=== PATIENT | male | born 1945 | race Caucasian/White ===

== ENCOUNTER 2017-02-10 08:19 | Day surgery (SDC) | payer MEDICARE, OTHER ==
[~2017-02-10] VITALS: Ht 180.3 cm; Wt 127.0 kg
[~2017-02-10 08:19] MED LIST: BUPIVACAINE-EPI 0.25%-1:200000 50 ML VIAL. ONE; DESFLURANE > 120 MINUTES IH ONE; DEXAMETHASONE SOD PHOS 20 MG/5 ML VIAL. ONE; GLYCOPYRROLATE 1 MG/5 ML VIAL. ONE; LIDOCAINE 2% PF Vial for OR 5 ML VIAL. ONE; MIDAZOLAM HCL/PF 2 MG/2 ML VIAL. ONE; NEOSTIGMINE METHYLSULFATE 5 MG/5 ML SYRINGE. ONE; ONDANSETRON PF 4 MG/2 ML VIAL. ONE; PROPOFOL 20 ML IV ONE; ROCURONIUM 50 MG/5 ML VIAL. ONE; fentaNYL PF VIAL 100 MCG/2 ML VIAL ONE
[2017-02-10] MEDS ORDERED: SITA1TAB11 PO (08:33)
[2017-02-10] MEDS ORDERED: INSU100I13 SQ (08:33)
[2017-02-10] MEDS ORDERED: GABA-586 PO (08:34)
[2017-02-10] MEDS ORDERED: ASPI-482 PO (08:35)
[2017-02-10] MEDS ORDERED: LOSA25TA4 PO (08:35)
[2017-02-10] MEDS ORDERED: INSU100C4 SQ (08:35)
[2017-02-10] MEDS ORDERED: ATOR20TA58 PO (08:36)
[2017-02-10] MEDS ORDERED: NIFE60TA10 PO (08:37)
[2017-02-10] MEDS ORDERED: fentaNYL PF VIAL 100 MCG/2 ML VIAL IV PRN ×4 (09:00→11:30)
[2017-02-10] MEDS ORDERED: LIDOCAINE 1% 1 ML SYRINGE. ID PRN ×2 (09:00→11:30)
[2017-02-10] MEDS ORDERED: IV RINGERS,LACTATED 1000ML 1,000 ML IV SCH ×2 (09:00→11:19)
[2017-02-10] MEDS ORDERED: MIDAZOLAM HCL/PF 2 MG/2 ML VIAL. IV PRN (09:00)
[2017-02-10] MEDS ORDERED: PHENYLEPHRINE in 0.9% NACL PF 1 MG/10 ML DISP.SYRIN. IV ONE (09:30)
[2017-02-10] MEDS ORDERED: ePHEDrine PF IN SALINE 50 MG/5 ML DISP.SYRIN IV ONE (09:40)
[2017-02-10] MEDS ORDERED: PROPOFOL 20 ML IV ONE (09:47)
[2017-02-10] MEDS ORDERED: fentaNYL PF VIAL 100 MCG/2 ML VIAL ONE (09:47)
[2017-02-10] MEDS ORDERED: ROCURONIUM 50 MG/5 ML VIAL. ONE (10:13)
--- NOTE | 2017-02-10 10:57 | PDOC ---
BRIEF OPERATIVE NOTE Date: Feb 10, 2017 Pre-Op Diagnosis Incarcerated ventral hernia Post-Op Diagnosis Same Procedure Performed Robotic assisted L/S Ventral hernia repair with mesh Surgeon Shoaib Anesthesia Type: General Blood Loss 5ml Specimens Obtained none Findings as above Complications None JANNET WERNER MD Feb 10, 2017 10:57
--- NOTE | 2017-02-10 10:59 | DISCH ---
DISCHARGE INSTRUCTIONS Condition on Discharge Condition on Discharge: Stable Activity After Discharge Activity Instructions for Disc: Avoid exertion Other activity instructions: No lifting >20lbs for 2 weeks Diet after Discharge Diet after Discharge: Regular Wound Incision Care Other wound/incision instructi: May shower in 24 hour, leave umbilical dressing on for 1 week Contacting the after DC Call your doctor for: If your condition worsens Follow-Up Follow up with: Dr Werner in 2 weeks JANNET WERNER MD Feb 10, 2017 10:58
[2017-02-10] MEDS: MORPHINE SULFATE 2 MG/ML DISP.SYRIN. IV PRN ×2 (11:25→11:42)
[2017-02-10] MEDS ORDERED: HYDROmorphone 2 MG/ML VIAL IV PRN (11:30)
[2017-02-10] MEDS ORDERED: PROCHLORPERAZINE 10 MG/2 ML VIAL. IV PRN (11:30)
[2017-02-10] MEDS ORDERED: ONDANSETRON PF 4 MG/2 ML VIAL. IV PRN (11:30)
[2017-02-10] MEDS ORDERED: HYDR-971 PO (11:45)
[2017-02-10] MEDS ORDERED: HYDROcodone/APAP 5/325MG 1 TAB TABLET ONE (12:04)
[2017-02-10] MEDS ORDERED: HYDROcodone/APAP 5/325MG 1 TAB TABLET PO PRN (12:15)
[2017-02-10 12:20] VITALS: BP 158/71
--- NOTE | 2017-02-10 12:49 | OP ---
DATE OF SURGERY: 02/10/2017 PREOPERATIVE DIAGNOSIS: Incarcerated ventral hernia. POSTOPERATIVE DIAGNOSIS: Incarcerated ventral hernia. PROCEDURE: Robotic-assisted laparoscopic ventral hernia repair with mesh. SURGEON: Newton Wrener M.D. INDICATIONS: The patient is a 71-year-old gentleman who has a large mid abdominal ventral hernia with incarcerated omentum. Procedure of robotic-assisted laparoscopic hernia repair with mesh was explained to the patient in detail. Risks, benefits were also discussed including bleeding, infection, injury to intra-abdominal contents, possibly necessitating further open operations. Alternatives of this procedure were also discussed with the patient who seemed to understand and gave verbal and written consent to have the procedure performed. DESCRIPTION OF PROCEDURE: The patient was taken to the operating room and placed in the supine position. General anesthesia was initiated. Once the patient was asleep and intubated, his abdomen was prepped and draped in usual sterile fashion using ChloraPrep. An area in the left upper quadrant was injected with 0.25% Marcaine with epinephrine. Incision was made with an 11 blade scalpel and a 5 mm Visiport was placed under direct visualization into the abdomen. Pneumoperitoneum was achieved. Once this was complete, 5 mm camera was placed within the abdomen. The abdomen was inspected. It was noted that there was an incarcerated omentum within the ventral hernia. At this point, three da Cherri 8.5 mm ports were placed, one in the left upper quadrant, one in the left mid abdomen and one left lower quadrant under direct visualization. Once these were in place, the da Cherri robot was brought in and docked to the ports. A 30 degree scope was placed within the abdomen through the middle port and an EndoShears scissors and a grasper were placed under direct visualization. At this point, the surgeon went to the robotic console. Using the grasper and EndoShears scissors, the incarcerated omentum was reduced from the hernia defect. The hernia defect was then closed using a 2-0 running V-Loc nonabsorbable suture. At this point, a Ventralight mesh 4 x 6 was placed within the abdomen. This was placed over the hernia defect and sewn into place with a running absorbable V-Loc suture. The mesh was sewn in circumferentially. Once this was complete, the ports were removed. The pneumoperitoneum was reduced. The skin incisions were closed with 4-0 subcuticular Monocryl. Mastisol, Steri-Strips and island dressings were applied. The patient was awakened, extubated in the operating room, taken to recovery in stable condition. All sponge, instrument counts listed as correct. Estimated blood loss 5 mL. NEWTON WERNER MD DR: LUIS/jose JOB#: [id number] / [id number] TEQUILA Keene MD
== END 2017-02-10 12:44 | disposition home or self-care (01) ==
LOC: SURG 08:19
PROVIDERS: ATTEND Surgery
DX: K43.6 Other and unspecified ventral hernia with obstruction, without gangrene (principal); E78.00 Pure hypercholesterolemia, unspecified; I10 Essential (primary) hypertension; E66.9 Obesity, unspecified; E03.9 Hypothyroidism, unspecified; E11.9 Type 2 diabetes mellitus without complications; F17.200 Nicotine dependence, unspecified, uncomplicated; Z86.69 Personal history of other diseases of the nervous system and sense organs
CPT/HCPCS: 49653; 82962; C1781; J0690; J1100; J2250; J2270; J2370; J2405; J2704; J2710; J3010; J3490; J7120

== ENCOUNTER → 2017-09-06 | Outpatient (CLI) | payer MEDICARE, OTHER | END | disposition home or self-care (01) | LOC: MRI 09:56 | DX: M51.27 Other intervertebral disc displacement, lumbosacral region (principal); M48.061 Spinal stenosis, lumbar region without neurogenic claudication; E88.2 Lipomatosis, not elsewhere classified; M54.16 Radiculopathy, lumbar region | CPT/HCPCS: 72148 ==

== ENCOUNTER → 2018-10-05 | Outpatient (CLI) | payer MEDICARE, OTHER ==
[~2018-10-05] MED LIST changes: +ASPI-482 PO; +ATOR20TA58 PO; -BUPIVACAINE-EPI 0.25%-1:200000 50 ML VIAL. ONE; -DESFLURANE > 120 MINUTES IH ONE; -DEXAMETHASONE SOD PHOS 20 MG/5 ML VIAL. ONE; +GABA300C18 PO; -GLYCOPYRROLATE 1 MG/5 ML VIAL. ONE; +HYDR-3164 PO; +INSU100C4 SQ; +INSU100I13 SQ; -LIDOCAINE 2% PF Vial for OR 5 ML VIAL. ONE; +LOSA25TA54 PO; -MIDAZOLAM HCL/PF 2 MG/2 ML VIAL. ONE; -NEOSTIGMINE METHYLSULFATE 5 MG/5 ML SYRINGE. ONE; +NIFE60TA14 PO; -ONDANSETRON PF 4 MG/2 ML VIAL. ONE; -PROPOFOL 20 ML IV ONE; -ROCURONIUM 50 MG/5 ML VIAL. ONE; +SITA1TAB11 PO; -fentaNYL PF VIAL 100 MCG/2 ML VIAL ONE
--- NOTE | 2018-10-05 08:42 | KCIC ---
MRI Lumbar Spine without contrast History: Lumbar radiculopathy, low back pain, sciatica getting worse of the lower extremities bilaterally Technique: Multiplanar, multi sequential noncontrast MR imaging was performed of the lumbar spine. Comparison: September 06, 2017 Findings: Lumbar vertebral body stature is maintained. There is negligible grade 1 anterior spondylolisthesis L5-S1, bilateral L5 spondylolysis. Conus terminates at L1. Intervertebral disc spaces are relatively preserved, very mild posterior narrowing L5-S1. L2-L3: Neural foramina and spinal canal are adequate. There is mild buckling of the ligamentum flavum. L3-L4: There is minimal buckling of the ligamentum flavum. Neural foramina and spinal canal are overall adequate. L4-L5: There is mild buckling of the ligamentum flavum. There is negligible disc osteophyte complex. There is mild inferior neural foramina compromise bilaterally. Spinal canal is adequate. L5-S1: There is again posterior epidural lipomatosis. There is again minimal disc osteophyte complex. There is posterior annular tear. There is somewhat limited preserved subarachnoid space, overall moderate attenuation of the thecal sac primarily from posteriorly by epidural lipomatosis. There is more significant narrowing of the distal left neural foramen by disc osteophyte complex and shallow protrusion with contact of the exiting left L5 nerve root extending to the extraforaminal region. There is moderate narrowing of the right neural foramen also greater distally, contact of the undersurface exiting right L5 nerve root. Impression: 1. There is very mild grade 1 anterior spondylolisthesis L5-S1 due to L5 spondylolysis. There is more significant narrowing of the more distal left L5-S1 neural foramen with contact exiting left L5 nerve root extending to the extraforaminal region, lesser degree of moderate narrowing on the right at L5-S1. There is mild neural foramina compromise bilaterally at L4-5. 2. There is again epidural lipomatosis at L5-S1 resulting in moderate attenuation of the thecal sac from posteriorly. Electronically signed by: Vamshi Dunn MD (10/05/2018 8:38 AM) [facility]
== END | disposition home or self-care (01) ==
LOC: KCIC MRI 07:25
DX: M43.17 Spondylolisthesis, lumbosacral region (principal); M54.16 Radiculopathy, lumbar region; M48.07 Spinal stenosis, lumbosacral region
CPT/HCPCS: 72148

== ENCOUNTER 2018-12-19 11:12 | Observation (INO) | payer MEDICARE, OTHER ==
[~2018-12-19] VITALS: Ht 180.3 cm; Wt 129.3 kg
[~2018-12-19 11:12] MED LIST changes: +HYDROmorphone 2 MG/ML VIAL IV PRN; +IV RINGERS,LACTATED 1000ML 1,000 ML IV SCH; +LIDOCAINE 1% PF 2 ML VIAL. ID PRN; +MORPHINE SULFATE 2 MG/ML VIAL. IV PRN; +ONDANSETRON PF 4 MG/2 ML VIAL. IV PRN; +PROCHLORPERAZINE 10 MG/2 ML VIAL. IV PRN; +fentaNYL PF VIAL 100 MCG/2 ML VIAL IV PRN
[2018-12-19] MEDS ORDERED: BACITRACIN 50,000 UNIT in IV NORMAL SALINE 250ML 250 ML IRR ONE (11:45)
--- NOTE | 2018-12-19 11:52 | PDOC1 ---
History and Physical Visit Information Date of Admission: 12/19/2018 History of Present Illness History of Present Illness 73-year-old man coming into the hospital today for placement of a dual-chamber ICD in the setting of severe cardio myopathy with ejection fraction of 30%. He was evaluated in the office and underwent a stress test which did not reveal any ischemia. Discussed the risks and benefits and he wishes to proceed. Cardiac Risk Factors Cardiac Risk Factors: Hypertension, Hyperlipidemia, Family History Past Medical History Cardiovascular: CHF GI: No pertinent hx Heme/Onc: No pertinent hx Hepatobiliary: No pertinent hx Psych: No pertinent hx Musculoskeletal: low back pain Rheumatologic: No pertinent hx Infectious disease: No pertinent hx ENT: No pertinent hx Renal/: No pertinent hx Endocrine: Diabetes Dermatology: No pertinent hx Current Medications Current Medications Current Medications Bacitracin 02193 unit/Sodium Chloride 250 ml @ 0 mls/hr 1X ONCE IRR ; Start 12/19/18 at 11:45; Stop 12/19/18 at 11:46 Cefazolin Sodium/ Dextrose 50 ml @ 100 mls/hr 1X ONCE IV ; Start 12/19/18 at 11:33; Stop 12/19/18 at 12:02 Fentanyl Citrate (Fentanyl 2ml Vial) 25 mcg PRN Q5MIN PRN IV MILD PAIN; Start 12/19/18 at 07:00; Stop 12/20/18 at 06:59 Fentanyl Citrate (Fentanyl 2ml Vial) 50 mcg PRN Q5MIN PRN IV MODERATE TO SEVERE PAIN; Start 12/19/18 at 07:00; Stop 12/20/18 at 06:59 Hydromorphone HCl (Dilaudid) 0.5 mg PRN Q10MIN PRN IV SEV PAIN, Second choice; Start 12/19/18 at 07:00; Stop 12/20/18 at 06:59 Lidocaine HCl (Xylocaine-Mpf 1% 2ml Vial) 2 ml PRN 1X PRN ID PRIOR TO IV START; Start 12/19/18 at 07:00; Stop 12/20/18 at 06:59 Morphine Sulfate (Morphine Sulfate) 1 mg PRN Q10MIN PRN IV SEVERE PAIN; Start 12/19/18 at 07:00; Stop 12/20/18 at 06:59 Ondansetron HCl (Zofran) 4 mg PRN Q6HRS PRN IV NAUSEA/VOMITING; Start 12/19/18 at 07:00; Stop 12/20/18 at 06:59 Prochlorperazine Edisylate (Compazine) 5 mg PACU PRN PRN IV NAUSEA, MRX1; Start 12/19/18 at 07:00; Stop 12/20/18 at 06:59 Ringer's Solution 1,000 ml @ 30 mls/hr Q24H IV ; Start 12/19/18 at 07:00; Stop 12/19/18 at 18:59 Allergies Allergies Allergies Coded Allergies Type Severity Reaction Last Updated Verified lisinopril Allergy Intermediate 02/10/17 Yes Social History Smoke: No ALCOHOL: none Drugs: None Lives: with Family ROS Review of System Negative for 06/11 systems reviewed unless otherwise noted above in HPI. Physical Exam General: Alert, Oriented X3 HEENT: Atraumatic Lungs: Clear to auscultation Heart: Regular rate CHEST: Clear to auscultation Abdomen: Normal bowel sounds Extremities: No clubbing Skin: No rashes Neuro: Normal gait Vitals VITALS VSS Labs Labs Labs pending ECG EKG: NSR (QRS 105 ms) VTE Prophylaxis Ordered VTE Prophylaxis Devices: No VTE Pharmacological Prophylaxi: No Assessment/Plan Assessment/Plan 1. NICM with EF less than 35% 2. HTN 3. Dyslipidemia 4. CKD 5. DM2 Plan for dual chamber ICD. KARIN MINOR MD Dec 19, 2018 11:52
--- NOTE | 2018-12-19 11:52 | PDOC ---
MODERATE SEDATION ASSESSMENT RISKS/ALTERNATIVES Risks/Alternatives Risks and alternatives of this type of sedation and procedure discussed with: RISK/ALTERNATIVES: Patient H & P ON CHART H & P H & P on chart and reviewed for co-morbid conditions and appropriate labs. H&P ON CHART: Yes STATUS PREG STATUS ASSESSED: N/A MEDS/ALLERGIES REVIEWED Meds/Allergies Reviewed Medications and Allergies including time and route of recently administered narcotics and sedatives. MEDS/ALLERGIES REVIEWED: Yes ASA RATING ASA RATING: II AIRWAY ASSESSMENT Airway Assessment Airway patency, oral function limitations, presence of caps, crowns, dentures, partials, and ability to extend neck assessed. AIRWAY ASSESSMENT: Yes MALLAMPATI SCORE MALLAMPATI SCORE: II PRE-SEDATION ASSESSMENT PRE-SEDATION ASSESSMENT: Yes KARIN MINOR MD Dec 19, 2018 11:52
[2018-12-19 11:58] VITALS: BP 159/73
--- NOTE | 2018-12-19 12:20 | EKG ---
[facility] [address] [place] [address] Test Date: 2018-12-19 Test Time: 12:16:39 Pat Name: JARRELL ARANDA Department: Room: Gender: M Marketing Operations Coordinator: SASHA : 1945 Requested By: KARIN MINOR Order Number: [id number] Reading MD: Joe Garrett Measurements Intervals [place] Rate: 82 P: 64 SD: 170 QRS: -36 QRSD: 108 T: 49 QT: 380 QTc: 447 Interpretive Statements SINUS RHYTHM ABNORMAL LEFT AXIS DEVIATION LEFT ANTERIOR FASCICULAR BLOCK NON SPECIFIC T ABNORMALITY NON SPECIFIC ST DEPRESSION ABNORMAL ECG No previous ECG available for comparison Electronically Signed On 12-25-2018 11:32:18 CDT by Joe Garrett
[2018-12-19 12:28] LABS: PROTHROMBIN TIME PATIENT 12.1 SEC (11.7-14.0)
[2018-12-19 12:34] LABS: HEMATOCRIT 39.7 % (39.0-53.0); HEMOGLOBIN 13.3 g/dL (13.0-17.5); RED BLOOD COUNT 4.66 x10^6/uL (4.30-5.70); RED CELL DISTRIBUTION WIDTH 15.9 % (11.5-14.5); WHITE BLOOD COUNT 10.9 x10^3/uL (4.0-11.0)
[2018-12-19] MEDS ORDERED: LIDOCAINE 2%/EPI 1:100,000 20 ML VIAL. ONE (12:34)
[2018-12-19 12:41] LABS: CALCIUM 8.7 mg/dL (8.5-10.1); CREATININE 1.6 mg/dL (0.7-1.3); GFR 42.8; POTASSIUM 4.2 mmol/L (3.5-5.1)
[2018-12-19] MEDS ORDERED: OMEG1CAP38 PO (13:10)
[2018-12-19] MEDS ORDERED: fentaNYL PF VIAL 100 MCG/2 ML VIAL ONE (13:43)
[2018-12-19] MEDS ORDERED: MIDAZOLAM HCL/PF 5 MG/5 ML VIAL. ONE (13:43)
[2018-12-19] MEDS ORDERED: MIDAZOLAM HCL/PF 2 MG/2 ML VIAL. ONE (13:45)
[2018-12-19] MEDS ORDERED: PHENYLEPHRINE 10 MG/ML VIAL. ONE (13:45)
[2018-12-19] MEDS ORDERED: PHENYLEPHRINE in 0.9% NACL PF 1 MG/10 ML SYRINGE. IV ONE (13:46)
[2018-12-19] MEDS ORDERED: ePHEDrine PF IN SALINE 50 MG/10 ML SYRINGE. IV ONE (13:46)
[2018-12-19] MEDS ORDERED: PROPOFOL 80 ML IV ONE (13:54)
[2018-12-19] MEDS ORDERED: KETAMINE HCL IN NACL, ISO-OSM 50 MG/5 ML SYRINGE ONE ×2 (14:13→14:44)
[2018-12-19] MEDS ORDERED: hydrALAZINE 20 MG/ML VIAL. ONE (14:23)
[2018-12-19] MEDS ORDERED: METOPROLOL TARTRATE 5 MG/5 ML VIAL. IVP ONE ×2 (14:37→14:45)
[2018-12-19] MEDS ORDERED: PROPOFOL 100 ML IV ONE (14:44)
[2018-12-19] MEDS ORDERED: hydrALAZINE 20 MG/ML VIAL. IVP ONE (14:45)
[2018-12-19] MEDS ORDERED: LIDOCAINE 2%/EPI 1:100,000 20 ML VIAL. IJ ONE (14:45)
--- NOTE | 2018-12-19 15:45 | CARD ---
MR#: [id number] Date of Study: 12/19/2018 Ordering Physician: KARIN MINOR, Referring Physician: KARIN MINOR, Tech: APPROVED REPORT EXAM Implantation automatic implantable cardioverter-defibrillator moderate sedation by Anesthesia fl time: 10.3 minutes Dose: 111 Gycm2 HISTORY The Patient is a 73 year-old male with a history of ischemic and non-ischemic CMP. EF 30%. INDICATIONS Primary prevention of SCD. CONSCIOUS SEDATION AGENTS See anesthesia notes for full details. Patient was very difficult to sedate requiring several rounds of propofol and other agents. This was a complex case due to significant issues with sedation. IMPLANTED DEVICES 40 mL of 2% lidocaine was infiltrated into the skin and subcutaneous tissues for local anesthesia. A n incision was made over the left infraclavicular fossa and using blunt dissection and cautery a pock et was created. Creation of the pocket was extremely difficult due to significant chest wall obesity. Venous access was obtained in the left subclavian vein and 7 and 6 [place] sheaths were inserted. Subsequently, a [employer] Boone bipolar active fixation right ventricular lead model Durata 7122Q/58 cm, SN [id number] was advanced under fluoroscopic guidance and the tip was positioned in the right ventricula r apex. Following this, a [employer] Boone bipolar active fixation right atrial lead model Tendril STS 2088T C/52 cm, SN [id number] was placed in the right atrial appendage under fluoroscopy guidance. The leads were secured into place and were attached to a [employer] Boone dual-chamber ICD generator model Ashleyify Ass marshaa 2357-40Q, SN [id number]. This was placed in the pocket that was subsequently closed in 3 layers. Hemostasis was secured. At the end of procedure, the right ventricular lead showed sensing amplitude of >12 mV, impedance of 690 ohms and a threshold of 0.75V at 0.5 ms. The right atrial lead showed a sensing amplitude of 3.6 millivolts, impedance of 510 ohms and a threshold of 1.0 volt at 0.5 ms. Patient tolerated the proce dure well. There were no immediate complications. Device Settings: DDD 60-120 VT-171 VF-214 Successful DFT testing performed at the time of insertion without any dropout noted. CONCLUSION 1. Successful [employer] Boone dual chamber ICD insertion for primary prevention of SCD with EF of 30%. 2. Successful DFT testing. Signed by : Karin Minor, Electronically Approved : 12/19/2018 15:45:03
[2018-12-19] MEDS ORDERED: NO ANTICOAGULANT THERAPY. MC PRN (16:00)
[2018-12-19 17:21] VITALS: BP 157/70
[2018-12-19] MEDS ORDERED: ceFAZolin SODIUM 3 GM in IV DEXTROSE 5% 100ML 100 ML IV ONE (17:30)
[2018-12-19] MEDS ORDERED: DEXTROSE 50% 25 GM / 50ML DISP.SYRIN. IV PRN (18:15)
[2018-12-19] MEDS ORDERED: metFORMIN 500 MG TABLET PO SCH (18:30)
[2018-12-19] MEDS: INSULIN LISPRO 300 UNITS/3 ML INSULN.PEN. SQ SCH (18:40)
[2018-12-19 19:26] VITALS: BP 190/80
[2018-12-19] MEDS: GABAPENTIN 300 MG CAPSULE. PO SCH (20:03)
[2018-12-19] MEDS ORDERED: NITROGLYCERIN OINT 1 GM PACKET. TP ONE (20:30)
[2018-12-19 21:00] VITALS: BP 160/70
[2018-12-19] MEDS ORDERED: ATORVASTATIN CALCIUM 20 MG TABLET PO SCH (21:00)
[2018-12-19] MEDS ORDERED: INSULIN GLARGINE 300 UNITS/3 ML INSULN.PEN. SQ SCH (21:00)
[2018-12-19] MEDS ORDERED: NON FORMULARY ITEM (Sitagliptin Phos/Metformin Hcl (Janumet 50-1,000 Mg Tablet) 1 TAB) PO SCH (21:00)
[2018-12-19 21:15] VITALS: BP 141/65
[2018-12-19 23:14] VITALS: BP 156/69
[2018-12-20 03:14] VITALS: BP 163/71
[2018-12-20 07:00] VITALS: BP 175/86
--- NOTE | 2018-12-20 07:54 | RAD ---
Examination: PORTABLE CHEST 1V History: POST PACEMAKER Comparison/Correlation: None Findings: Upright frontal view of the chest was obtained. Dual-lead left-sided ICD is present. One of the leads terminates overlying the right atrial appendage. Additional lead overlies expected site of the right atrium or proximal right ventricle more inferiorly. No pneumothorax. Subtle opacification at the left lung base probably represents epicardial fat. No definite pleural effusion. Bony structures are unremarkable. Impression: No pneumothorax. Dual-lead left-sided ICD. One of the leads overlies the right atrial appendage while another lead appears to lie the right atrium or proximal left ventricle region more inferiorly. Consider lateral view of the chest or clinical correlation otherwise in determining need for further assessment. Electronically signed by: Nick Hannon MD (12/20/2018 7:50 AM) [facility]
[2018-12-20] MEDS: GABAPENTIN 300 MG CAPSULE. PO SCH (08:20)
[2018-12-20] MEDS: INSULIN LISPRO 300 UNITS/3 ML INSULN.PEN. SQ SCH ×2 (08:24→12:22)
[2018-12-20] MEDS ORDERED: OMEGA-3 FATTY ACIDS/FISH OIL 1,000 MG CAPSULE. PO SCH (09:00)
[2018-12-20] MEDS ORDERED: LINAGLIPTIN 5 MG TABLET PO SCH (09:00)
[2018-12-20] MEDS ORDERED: ASPIRIN ENTERIC COATED 81 MG TABLET.DR. PO SCH (09:00)
--- NOTE | 2018-12-20 09:40 | RAD ---
PA and lateral chest radiographs 12/20/2018 CLINICAL HISTORY: Post pacemaker placement yesterday. PA and lateral digital radiographs of the chest were obtained. Comparison study is dated 12/19/2018. A left-sided pacemaker is unchanged in position. The cardiac silhouette is mildly enlarged. The thoracic aorta is minimally tortuous. Atherosclerotic calcification of the thoracic aorta is seen. No acute pulmonary infiltrate is noted. No pneumothorax or pleural effusion is seen. The osseous structures are unchanged. IMPRESSION: No acute abnormality is seen. Electronically signed by: Saeed Richardson MD (12/20/2018 9:37 AM) [facility] [place]
[2018-12-20] MEDS ORDERED: SACUBITRIL/VALSARTAN 24/26MG TABLET. PO SCH (10:45)
[2018-12-20] MEDS ORDERED: METOPROLOL SUCC 24HR ER 25 MG TAB.ER.24H. PO SCH (10:45)
--- NOTE | 2018-12-20 10:49 | PDOC3 ---
Discharge Summary Visit Information Date of Admission: Dec 19, 2018 Date of Discharge: Dec 20, 2018 Admitting Diagnosis: NICM, DM2 Final Diagnosis NICM, DM2, S/P AICD placement Brief Hospital Course Allergies Allergies Coded Allergies Type Severity Reaction Last Updated Verified lisinopril Allergy Intermediate 02/10/17 Yes Vital Signs Vital Signs Date Time Temp Pulse Resp B/P (MAP) Pulse Ox O2 Delivery O2 Flow Rate FiO2 12/20/18 08:21 95 175/86 12/20/18 07:00 97.5 20 92 Room Air 97.5 Lab Results Laboratory Tests Test 12/19/18 12:10 12/19/18 21:10 12/20/18 07:48 White Blood Count 10.9 x10^3/uL (4.0-11.0) Red Blood Count 4.66 x10^6/uL (4.30-5.70) Hemoglobin 13.3 g/dL (13.0-17.5) Hematocrit 39.7 % (39.0-53.0) Mean Corpuscular Volume 85 fL (79-100) Mean Corpuscular Hemoglobin 29 pg (25-35) Mean Corpuscular Hemoglobin Concent 34 g/dL (31-37) Red Cell Distribution Width 15.9 % (11.5-14.5) Platelet Count 270 x10^3/uL (140-400) Prothrombin Time 12.1 SEC (11.7-14.0) Prothromb Time International Ratio 0.9 (0.8-1.1) Sodium Level 139 mmol/L (136-145) Potassium Level 4.2 mmol/L (3.5-5.1) Chloride Level 103 mmol/L (98-107) Carbon Dioxide Level 26 mmol/L (21-32) Anion Gap 10 (6-14) Blood Urea Nitrogen 25 mg/dL (8-26) Creatinine 1.6 mg/dL (0.7-1.3) Estimated GFR (Cockcroft-Gault) 42.8 Glucose Level 326 mg/dL (70-99) Calcium Level 8.7 mg/dL (8.5-10.1) Glucose (Fingerstick) 221 mg/dL (70-99) 216 mg/dL (70-99) Laboratory Tests Test 12/19/18 12:10 12/19/18 21:10 12/20/18 07:48 White Blood Count 10.9 x10^3/uL (4.0-11.0) Red Blood Count 4.66 x10^6/uL (4.30-5.70) Hemoglobin 13.3 g/dL (13.0-17.5) Hematocrit 39.7 % (39.0-53.0) Mean Corpuscular Volume 85 fL (79-100) Mean Corpuscular Hemoglobin 29 pg (25-35) Mean Corpuscular Hemoglobin Concent 34 g/dL (31-37) Red Cell Distribution Width 15.9 % (11.5-14.5) Platelet Count 270 x10^3/uL (140-400) Prothrombin Time 12.1 SEC (11.7-14.0) Prothromb Time International Ratio 0.9 (0.8-1.1) Sodium Level 139 mmol/L (136-145) Potassium Level 4.2 mmol/L (3.5-5.1) Chloride Level 103 mmol/L (98-107) Carbon Dioxide Level 26 mmol/L (21-32) Anion Gap 10 (6-14) Blood Urea Nitrogen 25 mg/dL (8-26) Creatinine 1.6 mg/dL (0.7-1.3) Estimated GFR (Cockcroft-Gault) 42.8 Glucose Level 326 mg/dL (70-99) Calcium Level 8.7 mg/dL (8.5-10.1) Glucose (Fingerstick) 221 mg/dL (70-99) 216 mg/dL (70-99) Brief Hospital Course Mr. Underwood is a 73 yo male admitted for planned AICD placement for primary prevention of SCD with EF of 30%. Recent stress test revealed no ischemia and noted with NICM. Successful [employer]. Boone dual chamber ICD insertion and DFT testing. He tolerated the procedure well without complications. Repeat interrogation revealed normal function. Left chest surgical incision intact, without swelling or oozing or redness, well approximated with steristrips. Neurovascular status to LUE intact. VSS with BP labile, SR, surgical pain is well controlled. Ambulatory without difficulty. Continue home meds with addition of low dose entresto (samples for 3 weeks given) and toprol XL, BMP next week.. Discharge Information Condition at Discharge: Stable Follow Up: Weeks (2) Disposition/Orders: D/C to Home Scheduled Aspirin (Aspir 81) 81 Mg Tablet.dr, 1 TAB PO DAILY, #30 Ref 5 (Reported) Entered as Reported by: ROSA ORTIZ on 02/10/17834 Last Taken: Unknown Dose on 12/18/18 Last Action: Continued on 12/19/181802 by KEMAR MCKAY Atorvastatin Calcium (Atorvastatin Calcium) 20 Mg Tablet, 1 TAB PO HS, #30 Ref 5 (Reported) Entered as Reported by: ROSA ORTIZ on 02/10/17835 Last Taken: Unknown Dose on 12/18/18 Last Action: Continued on 12/19/181802 by KEMAR MCKAY Gabapentin (Gabapentin ) 300 Mg Capsule, 300 MG PO BID, (Reported) Entered as Reported by: ROSA ORTIZ on 02/10/17833 Last Taken: Unknown Dose on 12/18/18 Last Action: Continued on 12/19/181802 by KEMAR MCKAY Hydrocodone/Apap 5-325 ([place] 5-325 Tablet) 1 Each Tablet, 1-2 TAB PO Q4HRS for PAIN, #30 NS (Reported) Entered as Reported by: KATELYN DURON on 02/10/17 1145 Insulin Aspart (Novolog) 100 Unit/1 Ml Cartridge, 50 UNIT SQ TID for diabetes, (Reported) Entered as Reported by: ROSA ORTIZ on 02/10/17834 Last Action: Converted on 12/19/181806 by KEMAR MCKAY Insulin Glargine,Hum.rec.anlog (Lantus Solostar) 100 Unit/1 Ml Insuln.pen, 65 UNIT SQ HS, (Reported) Entered as Reported by: ROSA ORTIZ on 02/10/17832 Last Action: Continued on 12/19/181806 by KEMAR MCKAY Metoprolol Succinate (Metoprolol Succinate ( Xl )) 25 Mg Tab.er.24h, 25 MG PO DAILY for NICM for 30 Days, #30 Ref 2 Prescribed by: DOUG MATHUR on 12/20/18 1057 Nifedipine (Nifedipine Er) 60 Mg Tablet.er, 30 MG PO DAILY for blood pressure, (Reported) Entered as Reported by: ROSA ORTIZ on 02/10/17836 Last Taken: Unknown Dose on 12/18/18 Last Action: Converted on 12/19/181802 by KEMAR MCKAY [place]-3 Fatty Acids/Fish Oil ([place] 3 Fish Oil Softgel) 1 Each Capsule.dr, 1 EACH PO DAILY for suppliment, (Reported) Entered as Reported by: Pamela Mendieta on 12/19/18 1310 Last Taken: Unknown Dose on 12/18/18 Last Action: Converted on 12/19/181802 by KEMAR MCKAY Sacubitril/Valsartan (Entresto 24 mg-26 mg Tablet) 1 Each Tablet, 1 TAB PO BID for NICM for 30 Days, #60 Ref 1 Prescribed by: DOUG MATHUR on 12/20/18 1057 Sitagliptin Phos/Metformin Hcl (Janumet 50-1,000 Mg Tablet) 1 Each Tablet, 1 TAB PO BID, #60 Ref 5 (Reported) Entered as Reported by: ROSA ORTIZ on 02/10/17 0833 Last Taken: Unknown Dose on 12/18/18 Last Action: Converted on 12/19/181802 by KEMAR MCKAY Discontinued Medications Losartan Potassium (Losartan Potassium ) 25 Mg Tablet, 12.5 MG PO DAILY, (Reported) Entered as Reported by: ROSA ORTIZ on 02/10/17 0835 Patient Instructions Patient Instructions Must know & what to expect after device implant: 1. Your surgical dressing should be removed prior to discharge from the hospital, but allow the steri- strips to fall off naturally. 2. Activity restrictions: DO NOT raise arm above shoulder level, lift anyt dilan heavier than a gallon of milk, and no push or pull motions such as vacuuming/lawn mowing, no swinging motions (golf), etc for 4 weeks. 3. It is OK to use a cell phone or other electronic devices just be sure you do not store it in a breast pocket on the side where the device was placed. 4. Device will be interrogated prior to your discharge from the hospital and then every 3 months for defibrillators and every 6 months for pacemakers. You may be asked to have your device checked remotely from home as well, but this will depend on your particular physicians preference. 5. You may remove the arm immobilizer the day after device placement. Wear the arm immobilizer/splint at night (during sleep times) for 2 week to prevent unintended arm movement that can cause lead dislodgement. 6. Do not drive for one week as the task of driving may lead to unintended arm motion that may cause lead dislodgement. The seatbelt will also rub against the incision site & cause irritation. 7. It is our recommendation that you utilize Tylenol at home for pain control. You need to call our office if you are having uncontrollable pain at the incision site. 8. Keep your incision clean and dry. It is OK to shower. DO NOT submerge in bath, pool, or hot tub, until cleared by your doctor, as this could lead to increase risk of infection.. It is OK to use regular soap just do not scrub the incision site. Water spray from shower should not directly hit the incision. Be sure to blot dry not rub. 9. Inspect your incision daily. If you notice any increased redness, swelling, or drainage, or if you start running a fever, call the office immediately. The number is [phone]. 10. For women, if you need to protect against irritation from the bra straps, you can place a piece of gauze over the incision site for cushion. Please be sure to tape it loosely to allow air to the site & remove the gauze when you remove the bra. 11. Be sure to carry your device identification information card in your w allet/purse at all times. 12. It is OK to go through security at the airport with your device, but be sure to let the TSA know prior to proceeding as the security settings change depending on varying factors. Please do whatever is requested by security at that time. 13. Some of the newer devices may be MRI compatible but, currently, the use of these devices is not widespread, so you likely will not be able to have an MRI. Please clarify this with your physician. Special instructions for defibrillator patients: If your device recognizes a rhythm that requires treatment with a shock, you will most likely feel the shock. This is usually not a subtle feeling and it is uncomfortable. Please follow these steps if you receive a shock: Call the office if you receive one shock. Go to the emergency room if you receive two consecutive shocks- please have so me[address] drive you & call 911 if nobody is available- DO NOT drive yourself. Call 911 if you receive more than 2 consecutive shocks. If at any time, you feel lightheaded or dizzy/faint, stop what you are doing & lie down immediately. If you are driving, get to the side of the road quickly, turn your car off & call [phone] on your cell phone. DO NOT continue to drive as this may cause an accident that seriously injures yourself &/or others. Call the office at [phone] for any questions or concerns. DOUG MATHUR DIRECTOR EDUCATION Dec 20, 2018 10:49
[2018-12-20] MEDS ORDERED: SACU1TAB PO (10:57)
[2018-12-20] MEDS ORDERED: METO-239 PO (10:57)
[2018-12-20 11:00] VITALS: BP 162/85
--- NOTE | 2018-12-20 13:32 | NUR ---
SS following for discharge planning. SS reviewed pt chart. Pt is from home with spouse and is currently on room air. Discharge order on the chart for home with self care.
[2018-12-20 13:37] VITALS: BP 142/64
--- NOTE | 2018-12-20 14:08 | NUR ---
Discharge Note: JARRELL ARANDA [address] [place] [address] Discharge instructions and discharge home medications reviewed with Patient and a copy given. All questions have been answered and understanding verbalized. The following instructions and handouts were given: CAD, Pacemaker - care after Discontinued IV line Patient discharged to home with self care via wheelchair
== END 2018-12-20 14:09 | disposition home or self-care (01) ==
LOC: SURG 11:12 → 2 SOUTH 14:24
PROVIDERS: ADMIT Internal Medicine Cardiovascular Disease; ATTEND Internal Medicine Cardiovascular Disease
DX: I42.8 Other cardiomyopathies (principal); I11.9 Hypertensive heart disease without heart failure; E78.5 Hyperlipidemia, unspecified; I12.9 Hypertensive chronic kidney disease with stage 1 through stage 4 chronic kidney disease, or unspecified chronic kidney disease; E11.22 Type 2 diabetes mellitus with diabetic chronic kidney disease; N18.9 Chronic kidney disease, unspecified; Z95.810 Presence of automatic (implantable) cardiac defibrillator; I13.10 Hypertensive heart and chronic kidney disease without heart failure, with stage 1 through stage 4 chronic kidney disease, or unspecified chronic kidney disease
CPT/HCPCS: 33249; 36415; 71045; 71046; 80048; 82962; 85027; 85610; 93005; 93641; 96365; 96366; 96367; 96372; 96375; C1721; C1895; C1898; G0378; G0379; J0171; J0360; J0690; J0696; J1815; J2250; J2370; J2704; J3490; J7050; J3010; J7120; J7030

== ENCOUNTER → 2018-12-26 | Outpatient (CLI) | payer MEDICARE, OTHER ==
[2018-12-20 13:37] VITALS: BP 142/64
[~2018-12-26] MED LIST changes: -HYDROmorphone 2 MG/ML VIAL IV PRN; -IV RINGERS,LACTATED 1000ML 1,000 ML IV SCH; -LIDOCAINE 1% PF 2 ML VIAL. ID PRN; +METO-239 PO; -MORPHINE SULFATE 2 MG/ML VIAL. IV PRN; +OMEG1CAP38 PO; -ONDANSETRON PF 4 MG/2 ML VIAL. IV PRN; -PROCHLORPERAZINE 10 MG/2 ML VIAL. IV PRN; +SACU1TAB PO; -fentaNYL PF VIAL 100 MCG/2 ML VIAL IV PRN
[2018-12-26 11:35] LABS: CALCIUM 8.9 mg/dL (8.5-10.1); CREATININE 1.6 mg/dL (0.7-1.3); GFR 42.8; POTASSIUM 3.9 mmol/L (3.5-5.1)
== END | disposition home or self-care (01) ==
LOC: LAB 10:14
PROVIDERS: ATTEND Family Medicine
DX: I11.0 Hypertensive heart disease with heart failure (principal); I50.9 Heart failure, unspecified
CPT/HCPCS: 36415; 80048

== ENCOUNTER → 2020-12-25 | Outpatient (CLI) | payer MEDICARE, OTHER ==
[~2020-12-25] MED LIST changes: +LIDOCAINE 1% Multi-Dose 20 ML VIAL. INJ ONE
--- NOTE | 2020-12-25 13:14 | RAD ---
EXAM: Sonographic guided thyroid fine needle aspiration. HISTORY: 75-year-old male presents for sonographic guided fine-needle aspiration of bilateral thyroid nodules demonstrated on a sonogram performed 12/16/2020. TECHNIQUE: The risks of the procedure discussed with the patient and written and verbal consent was o btained. A timeout was performed. Sonographic imaging of the thyroid was performed and the nodules of concern within the thyroid lobes were identified. The skin overlying both areas was sterilely preppe d, draped and infiltrated with 1 percent lidocaine. Multiple passes were obtained through both lesion s of concern using 25-gauge needles with ultrasound guidance. The aspirate was submitted to the patho logist for analysis. Sterile bandages were placed. The patient tolerated the procedure without compli cation. IMPRESSION: Sonographically guided fine-needle aspiration of a 2.1 cm nodule within the inferior left thyroid lobe and 1.5 cm nodule within the mid right thyroid lobe demonstrated on a sonogram performe d 12/16/2020. The exam was slightly limited due to persistent patient respiratory motion despite multi ple breath-hold attempts. An addendum to this report be submitted when pathology results are availabl e. Electronically signed by: Lynne Danielson MD (12/25/2020 1:11 PM) [id number]
--- NOTE | 2020-12-26 15:10 | PATHOLOGY ---
Note [facility] Accession Number: [id number] TESTS RESULT FLAG UNITS REF RANGE LAB Clinician Provided Cytology Information No. of containers..01 Other (Miscellaneous) Source: LEFT THYROID DIAGNOSIS: LEFT THYROID NEGATIVE FOR MALIGNANT CELLS. BETHESDA CATEGORY II. SPECIMEN CONSISTS OF BENIGN FOLLICULAR CELLS, HEMOSIDERIN-LADEN MACROPHAGES, COLLOID, AND BLOOD. THIS PATTERN IS CONSISTENT WITH A BENIGN FOLLICULAR NODULE. THIN HYPOCELLULAR SMEAR(S) CONSIDERED ONLY MARGINALLY ADEQUATE FOR VALID CYTOPATHOLOGIC INTERPRETATION. PLEASE REPEAT FOR FURTHER STUDY AND CONFIRMATION. THIS INTERPRETATION INCLUDES EVALUATION OF A CELL BLOCK. Pathologist ICD10: 02 E04.1 Signed out by: Aldo Mahoney MD, Pathologist NPI- [id number] Performed by: Jackie Kelley Melter [employer] ([facility]) Gross description: 30ML, PINK, 2FX 4AD /LCS 12/26/2020 0631 Local FLAG LEGEND: L-Low Normal,H-High Normal,LL-Alert Low,HH-Alert High <-Panic Low,>-Panic High,A-Abnormal,AA-Critical Abnormal Performed at: [facility] [address] [place] [address] Dru Rosado MD, 02 JUSTIN [facility] [address] [place] [id number] Aldo Mahoney MD, Performed at: 01 [facility] [address], [place], [place] [id number] MD Dru Rosado MD Phone: [phone]
--- NOTE | 2020-12-26 15:10 | PATHOLOGY ---
Note [facility] Accession Number: [id number] TESTS RESULT FLAG UNITS REF RANGE LAB Clinician Provided Cytology Information No. of containers..01 Other (Miscellaneous) Source: RIGHT THYROID DIAGNOSIS: RIGHT THYROID NEGATIVE FOR MALIGNANT CELLS. BETHESDA CATEGORY II. SPECIMEN CONSISTS OF ABUNDANT BENIGN FOLLICULAR CELLS, HEMOSIDERIN-LADEN MACROPHAGES, SCANT COLLOID AND BLOOD. THE PATTERN IS CONSISTENT WITH ADENOMATOID NODULE. THIS INTERPRETATION INCLUDES EVALUATION OF A CELL BLOCK. Pathologist ICD10: 02 E04.1 Signed out by: 02 Aldo Mahoney MD, Pathologist NPI- [id number] Performed by: Jackie Kelley, Cnp ([facility]) Gross description: 30ML, PINK, 2FX 4AD /LCS 12/26/2020 0621 Local FLAG LEGEND: L-Low Normal,H-High Normal,LL-Alert Low,HH-Alert High <-Panic Low,>-Panic High,A-Abnormal,AA-Critical Abnormal Performed at: [facility] [address] [place] [address] Dru Rosado MD, [address] [address] Aldo Mahoney MD, Specimen Comment: Report sent to Performed at: [address], [place], [place] [id number] MD Dru Rosado MD Phone: [phone]
== END | disposition home or self-care (01) ==
LOC: US 12:06
PROVIDERS: ATTEND Family Medicine
DX: E04.2 Nontoxic multinodular goiter (principal); E78.00 Pure hypercholesterolemia, unspecified; E11.9 Type 2 diabetes mellitus without complications; E66.9 Obesity, unspecified; E03.9 Hypothyroidism, unspecified; I10 Essential (primary) hypertension; G47.30 Sleep apnea, unspecified; Z87.891 Personal history of nicotine dependence; Z79.82 Long term (current) use of aspirin; Z79.84 Long term (current) use of oral hypoglycemic drugs; Z98.890 Other specified postprocedural states; Z79.899 Other long term (current) drug therapy; Z88.8 Allergy status to other drugs, medicaments and biological substances
CPT/HCPCS: 10005; 10006; 76942; 88173; 88305

== ENCOUNTER → 2021-07-30 | Outpatient (CLI) | payer MEDICARE, OTHER ==
[~2021-07-30] MED LIST changes: -LIDOCAINE 1% Multi-Dose 20 ML VIAL. INJ ONE
[2021-07-30 14:45] LABS: BASO % 0 % (0-3); EOS # 0.4 x10^3/uL (0.0-0.7); EOS % 3 % (0-3); HEMATOCRIT 41.2 % (39.0-53.0); HEMOGLOBIN 13.6 g/dL (13.0-17.5); LYMPH # 2.5 x10^3/uL (1.0-4.8); LYMPH % 20 % (24-48); MEAN CORPUSCULAR HEMOGLOBIN 28 pg (25-35); MEAN CORPUSCULAR HGB CONC 33 g/dL (31-37); MEAN CORPUSCULAR VOLUME 84 fL (79-100); MONO # 0.7 x10^3/uL (0.0-1.1); MONO % 6 % (0-9); NEUT # 9.1 x10^3/uL (1.8-7.7); NEUT % 72 % (31-73); PLATELET COUNT 354 x10^3/uL (140-400); RED BLOOD COUNT 4.89 x10^6/uL (4.30-5.70); RED CELL DISTRIBUTION WIDTH 16.4 % (11.5-14.5); WHITE BLOOD COUNT 12.8 x10^3/uL (4.0-11.0)
[2021-08-01 12:16] LABS: KAPPA FREE 57.3 mg/L (3.3-19.4); KAPPA LAMBDA RATIO 2.11 (0.26-1.65); LAMBDA FREE 27.2 mg/L (5.7-26.3)
== END ==
LOC: ONCLAB 14:06
PROVIDERS: ATTEND Internal Medicine Hematology & Oncology
DX: D47.2 Monoclonal gammopathy (principal)
CPT/HCPCS: 36415; 82784; 83520; 84165; 85025; 86334